=== PATIENT | female | born 1960 | race Caucasian/White ===

== ENCOUNTER 2018-05-04 16:43 | Emergency (ER) | payer MEDICARE, OTHER ==
[~2018-05-04] VITALS: Ht 167.6 cm; Wt 64.4 kg
[~2018-05-04 16:43] MED LIST: AMITRIPTYLINE H10 MG PO; ATIVAN1 MG PO; BACTRIM DS TAB1 EACH PO; CIPRODEX OTIC7.5 ML AD; CYCLOBENZAPRINE10 MG PO; DEPAKOTE ER500 MG PO; HORIZANT600 MG PO; KEFLEX500 MG PO; KETOROLAC TROME10 MG PO; LASIX20 MG PO; LEVAQUIN500 MG PO; LEVOXYL88 MCG PO; MULTIVITAMINS1 EAC7; NEURONTIN800 MG PO; PAMELOR50 MG PO; POTASSIUM 25 M25 MEQ PO; SEROQUEL XR150 MG PO; SUBOXONE 4 MG-1 EACH SL
[2018-05-04] MEDS ORDERED: VENTOLIN HFA18 GM INH (17:07)
[2018-05-04] MEDS ORDERED: METHYLPREDNISOLO4 M1 PO (17:07)
[2018-05-04] MEDS ORDERED: LEVAQUIN500 MG PO (17:07)
== END 2018-05-04 17:10 | disposition home or self-care (01) ==
LOC: ED 16:43
DX: J40 Bronchitis, not specified as acute or chronic (principal); E03.9 Hypothyroidism, unspecified; F31.9 Bipolar disorder, unspecified; Z79.899 Other long term (current) drug therapy
CPT/HCPCS: 99284

== ENCOUNTER 2019-04-24 15:54 | Emergency (ER) | payer MEDICARE, OTHER ==
[~2019-04-24] VITALS: Ht 167.6 cm; Wt 55.8 kg
[~2019-04-24 15:54] MED LIST changes: +METHYLPREDNISOLO4 M1 PO; +VENTOLIN HFA18 GM INH
--- OUTSIDE RECORDS SUMMARY | 2019-04-24 15:56 | XMS ---
PreManage Notification: WALLACE CASIANO Security Cna Pct Events No recent Security Events currently on file CRITERIA MET - [facility] CARE PROVIDERS Richard Manuel Treatment Current PHONE: Unknown Rajiv has no Care Guidelines for this patient. EElle VISIT COUNT (12 MO.) 2 LUIS ARMANDO [facility] TOTAL 2 NOTE: Visits indicate total known visits. 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 - Bipolar disorder, unspecified INPATIENT VISIT TRACKING (12 MO.) 11/11/2018 09:08 Cherie Locke [facility] Medical TYPE: Surgery COMPLAINT: - SPINAL STENOSIS, LUMBAR REGION WITHOUT NEUROGENIC ANTONETTE DIAGNOSES: - Sleep apnea, unspecified - Accidental puncture or laceration of dura during a procedure - longterm (current) use of aspirin - Unspecified asthma, uncomplicated - 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 - Spinal stenosis, lumbar region without neurogenic claudication - Hardware rem\E\T\E\redo p - Other surgical procedures as the cause of abnormal reaction of the patient, or of later complication, without mention of misadventure at the time of the procedure - Disorder of thyroid, unspecified - Pseudarthrosis after fusion or arthrodesis - Personal history of nicotine dependence - Bipolar disorder, unspecified - Spinal stenosis, lumbar region without neurogenic claudication - Hypotension, unspecified - Polyneuropathy, unspecified [email or web address]
== END 2019-04-24 18:42 | disposition home or self-care (01) ==
LOC: ED 15:54
DX: S09.90XA Unspecified injury of head, initial encounter (principal); S91.131A Puncture wound without foreign body of right great toe without damage to nail, initial encounter; S16.1XXA Strain of muscle, fascia and tendon at neck level, initial encounter; W22.8XXA Striking against or struck by other objects, initial encounter; F31.9 Bipolar disorder, unspecified; Z87.891 Personal history of nicotine dependence; Z79.899 Other long term (current) drug therapy
CPT/HCPCS: 70450; 72125; 99283-25

== ENCOUNTER 2020-10-16 13:55 | Emergency (ER) | payer MEDICARE, OTHER ==
[~2020-10-16] VITALS: Ht 167.6 cm; Wt 61.2 kg
--- OUTSIDE RECORDS SUMMARY | 2020-10-16 13:58 | XMS ---
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 Care History Medical/Surgical 04/25/2019 [facility] - Patient is currently established with [facility]. If patient is seen in the ED during business hours. Please contact CHWs at [facility]. Care Recommendation: This patient has had 5 or more Emergency Department visits in the last 12 months.\T\nbsp; Patient requires education on the scope and purpose of the ED as an acute care provider not a Primary Care Provider and should not be utilized for chronic conditions.\T\nbsp; These are guidelines and the provider should exercise clinical judgment when providing care. E.D. VISIT COUNT (12 MO[address] 1 [facility]. 1 [facility] TOTAL 2 NOTE: Visits indicate total known visits. ED/UCC VISIT TRACKING (12 MO.) 10/16/2020 13:56 [facility] ARM[facility] TYPE: Emergency COMPLAINT: - R SIDE JAW/EAR PAIN 08/30/2020 01:28 Robert CARO OR TYPE: Emergency COMPLAINT: - DOG BITE INPATIENT VISIT TRACKING (12 MO.) No inpatient visits to display in this time frame [email or web address]
== END 2020-10-16 14:40 | disposition home or self-care (01) ==
LOC: ED 13:55
DX: H60.91 Unspecified otitis externa, right ear (principal); E03.9 Hypothyroidism, unspecified; Z79.899 Other long term (current) drug therapy
CPT/HCPCS: 99282

== ENCOUNTER 2022-10-29 12:59 | Emergency (ER) | payer MEDICARE, OTHER ==
[~2022-10-29] VITALS: Ht 162.6 cm; Wt 56.7 kg
[~2022-10-29 12:59] MED LIST changes: +DICLOFENAC SODI75 MG PO; +GUANFACINE HCL2 MG PO; +HYDROMORPHONE HC4 MG PO; +IRON 100-VITAM1 EACH PO; +KLOR-CON M2020 MEQ PO; +SENNA LAX8.6 MG PO; +TRAMADOL HCL50 MG PO; +VITAMIN C250 MG; +VITAMIN D31250 MC1; +XARELTO10 MG PO
--- OUTSIDE RECORDS SUMMARY | 2022-10-29 13:03 | XMS ---
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 Care History Medical/Surgical 04/25/2019 [facility] - Patient is currently established with [facility]. If patient is seen in the ED during business hours. Please contact CHWs at [facility]. Care Recommendation: This patient has had [...] care. E.D. VISIT COUNT (12 MO.) 1 [facility] TOTAL 1 NOTE: Visits indicate total known visits. ED/UCC VISIT TRACKING (12 MO.) 10/29/2022 13:00 [facility] TYPE: Emergency COMPLAINT: - L HIP TO FOOT INTERNAL BLEEDING INPATIENT VISIT TRACKING (12 MO.) No inpatient visits to display in this time frame [email or web address]
[2022-10-29] MEDS ORDERED: OXCARBAZEPINE300 MG PO (13:09)
[2022-10-29] MEDS ORDERED: LEVOTHYROXINE88 MCG PO (13:09)
== END 2022-10-29 13:37 | disposition home or self-care (01) ==
LOC: ED 12:59
DX: S33.5XXA Sprain of ligaments of lumbar spine, initial encounter (principal); S80.12XA Contusion of left lower leg, initial encounter; S70.12XA Contusion of left thigh, initial encounter; X58.XXXA Exposure to other specified factors, initial encounter; Z79.899 Other long term (current) drug therapy
CPT/HCPCS: 99283

== ENCOUNTER 2023-04-03 14:17 | Emergency (ER) | payer MEDICARE, OTHER ==
[~2023-04-03] VITALS: Ht 162.6 cm; Wt 58.1 kg
--- OUTSIDE RECORDS SUMMARY | ~2023-04-03 | XMS | Continuity of Care Document ---
Demographics + + + | Address | [address] | | | [place] [address] | + + + | Preferred Language | Unknown | + + + | Marital Status | | + + + | Baptist Affiliation | Unknown | + + + | Race | White | + + + | Ethnic Group | Not or | + + + Author + + + | Author | [facility] | + + + | Organization | [facility] | + + + | Address | [address] | | | [place] [address] | + + + | Phone | | + + + Care Team Providers + + + + | Care Forensic Psychologist Name | Role | Phone | + + + + Unavailable | Unavailable | + + + + Unavailable | Unavailable | + + + + Allergies and Intolerances + + + + + + | date | description | facility | reaction | severity | + + + + + + | (no date) | No Known Drug | [facility] | (no reaction) | (no severity) | | | Allergies | | | | + + + + + + Encounters No information. Functional Status No information. Immunizations No information. Medications + + + + | date | description | facility | + + + + | 2022-10-29 00:00 | LORAZEPAM | [facility] | + + + + | 2022-10-29 00:00 | GABAPENTIN ENACARBIL | [facility] | + + + + | 2012-12-29 00:00 | POTASSIUM BICARBONATE/CIT | [facility] | | | AC | | + + + + | 2022-10-29 00:00 | BUPRENORPHINE HCL/NALOXONE | [facility] | | | HCL | | + + + + | 2022-10-29 00:00 | POTASSIUM CHLORIDE | [facility] | + + + + | 2022-10-29 00:00 | ASCORBIC ACID | [facility] | + + + + | 2012-12-29 00:00 | FUROSEMIDE | [facility] | + + + + | 2022-10-29 00:00 | NORTRIPTYLINE HCL | [facility] | + + + + | 2016-05-19 00:00 | LEVOFLOXACIN | [facility] | + + + + | 2014-12-21 00:00 | CEPHALEXIN | [facility] | + + + + | 2022-10-29 00:00 | IRON,CARBONYL/ASCORBIC | [facility] | | | ACID | | + + + + | 2022-10-29 00:00 | GABAPENTIN | [facility] | + + + + | 2022-10-29 00:00 | OXCARBAZEPINE | [facility] | + + + + | 2016-08-07 00:00 | CIPROFLOXACIN HCL/DEXAMETH | [facility] | | | | | + + + + | 2022-10-29 00:00 | Cholecalciferol (Vitamin | [facility] | | | D3) | | + + + + | 2018-05-04 00:00 | METHYLPREDNISOLONE | [facility] | + + + + | 2022-10-29 00:00 | CYCLOBENZAPRINE HCL | [facility] | + + + + | 2018-03-04 00:00 | KETOROLAC TROMETHAMINE | [facility] | + + + + | 2016-08-07 00:00 | | [facility] | | | SULFAMETHOXAZOLE/TRIMETHOPR | | | | IM DS | | + + + + | 2018-05-04 00:00 | ALBUTEROL SULFATE | [facility] | + + + + | 2022-10-29 00:00 | QUETIAPINE FUMARATE | [facility] | + + + + | 2022-10-29 00:00 | LEVOTHYROXINE SODIUM | [facility] | + + + + | 2022-10-29 00:00 | LEVOTHYROXINE SODIUM | [facility] | + + + + Problems + + + + | date | description | facility | + + + + | 2014-12-21 00:00 | Acute cystitis | [facility] | + + + + | 2016-08-07 00:00 | Otitis externa of right | [facility] | | | ear | | + + + + | 2016-08-07 00:00 | Abscess of right axilla | [facility] | + + + + | 2018-03-04 00:00 | Contusion of left foot | [facility] | + + + + | 2018-05-04 00:00 | Bronchitis | [facility] | + + + + | 2019-04-24 00:00 | Minor head injury | [facility] | + + + + | 2019-04-24 00:00 | Strain of neck muscle | [facility] | + + + + | 2022-08-29 15:01 | OTHER SPECIFIED DISEASES | [facility] | | | OF BLOOD AND BLOOD-FORMIN | | + + + + | 2022-08-29 15:01 | PRIMARY OSTEOARTHRITIS, | [facility] | | | LEFT SHOULDER | | + + + + | 2022-10-29 00:00 | Complete tear of | [facility] | | | iliolumbar ligament | | + + + + | 2022-10-29 13:00 | SPRAIN OF LIGAMENTS OF | [facility] | | | LUMBAR SPINE, INITIAL | | | | ENCOUNTER | | + + + + | 2022-10-29 13:00 | CONTUSION OF LEFT THIGH, | [facility] | | | INITIAL ENCOUNTER | | + + + + | 2022-10-29 13:00 | CONTUSION OF LEFT LOWER | [facility] | | | LEG, INITIAL ENCOUNTER | | + + + + | 2022-10-29 13:00 | EXPOSURE TO OTHER | [facility] | | | SPECIFIED FACTORS, INITIAL | | | | ENCOU | | + + + + | 2022-10-29 13:00 | OTHER FPC (CURRENT) | [facility] | | | DRUG THERAPY | | + + + + | 2023-02-11 00:01 | AFTERCARE FOLLOWING JOINT | [facility] | | | REPLACEMENT SURGERY | | + + + + | 2023-02-11 00:01 | PRESENCE OF LEFT | [facility] | | | ARTIFICIAL SHOULDER JOINT | | + + + + Procedures No information. Results/Labs No information. Social History No information. Vital Signs + + + +---------+ | date | measurement | value | units | + + + +---------+ | 2022-10-29 00:00 | BMI | 21.5 | kg/m2 | + + + +---------+ | 2022-10-29 00:00 | BP_diastolic | 97 | mmHg | + + + +---------+ | 2022-10-29 00:00 | BP_systolic | 144 | mmHg | + + + +---------+ | 2022-10-29 00:00 | heart_rate | 103 | /min | + + + +---------+ | 2022-10-29 00:00 | height_metric | 162.56 | cm | + + + +---------+ | 2022-10-29 00:00 | height_standard | 64 | in | + + + +---------+ | 2022-10-29 00:00 | o2_saturation | 99 | % | + + + +---------+ | 2022-10-29 00:00 | respiration_rate | 17 | /min | + + + +---------+ | 2022-10-29 00:00 | temperature_metric | 36.94 | C | | | | | | + + + +---------+ | 2022-10-29 00:00 | | 98.5 | F | | | temperature_standar | | | | | d | | | + + + +---------+ | 2022-10-29 00:00 | weight_metric | 56.7 | kg | + + + +---------+ | 2022-10-29 00:00 | weight_standard | 125 | lb | + + + +---------+"
--- OUTSIDE RECORDS SUMMARY | ~2023-04-03 | XMS | Continuity of Care Document ---
Demographics + + + | Address | [address] | | | [place] [address] | + + + | Preferred Language | Unknown | + + + | Marital Status | | + + + | Yazidi Affiliation | Unknown | + + + | Race | White | + + + | Ethnic Group | Not or | + + + Author + + + | Author | [facility] | + + + | Organization | [facility] | + + + | Address | [address] | | | [place] [address] | + + + | Phone | | + + + Care Team Providers + + + + | Care Coppersmith Helper Name | Role | Phone | + [...] 2022-10-29 00:00 | LORAZEPAM | [facility] | + + + + | 2022-10-29 00:00 | GABAPENTIN ENACARBIL | [facility] | + + + + | 2012-12-29 00:00 | POTASSIUM BICARBONATE/CIT | [facility] | | | AC | | + + + + | 2022-10-29 00:00 | BUPRENORPHINE HCL/NALOXONE | [facility] | | | HCL | | + + + + | 2022-10-29 00:00 | POTASSIUM CHLORIDE | [facility] | + + + + | 2022-10-29 00:00 | ASCORBIC ACID | [facility] | + + + + | 2012-12-29 00:00 | FUROSEMIDE | [facility] | + + + + | 2022-10-29 00:00 | NORTRIPTYLINE HCL | [facility] | + + + + | 2016-05-19 00:00 | LEVOFLOXACIN | [facility] | + + + + | 2014-12-21 00:00 | CEPHALEXIN | [facility] | + + + + | 2022-10-29 00:00 | IRON,CARBONYL/ASCORBIC | [facility] | | | ACID | | + + + + | 2022-10-29 00:00 | GABAPENTIN | [facility] | + + + + | 2022-10-29 00:00 | OXCARBAZEPINE | [facility] | + + + + | 2016-08-07 00:00 | CIPROFLOXACIN HCL/DEXAMETH | [facility] | | | | | + + + + | 2022-10-29 00:00 | Cholecalciferol (Vitamin | [facility] | | | D3) | | + + + + | 2018-05-04 00:00 | METHYLPREDNISOLONE | [facility] | + + + + | 2022-10-29 00:00 | CYCLOBENZAPRINE HCL | [facility] | + + + + | 2018-03-04 00:00 | KETOROLAC TROMETHAMINE | [facility] | + + + + | 2016-08-07 00:00 | | [facility] | | | SULFAMETHOXAZOLE/TRIMETHOPR | | | | IM DS | | + + + + | 2018-05-04 00:00 | ALBUTEROL SULFATE | [facility] | + + + + | 2022-10-29 00:00 | QUETIAPINE FUMARATE | [facility] | + + + + | 2022-10-29 00:00 | LEVOTHYROXINE SODIUM | [facility] | + + + + | 2022-10-29 00:00 | LEVOTHYROXINE SODIUM | [facility] | + + + + Problems + + + + | date | description | facility | + + + + | 2014-12-21 00:00 | Acute cystitis | [facility] | + + + + | 2016-08-07 00:00 | Otitis externa of right | [facility] | | | ear | | + + + + | 2016-08-07 00:00 | Abscess of right axilla | [facility] | + + + + | 2018-03-04 00:00 | Contusion of left foot | [facility] | + + + + | 2018-05-04 00:00 | Bronchitis | [facility] | + + + + | 2019-04-24 00:00 | Minor head injury | [facility] | + + + + | 2019-04-24 00:00 | Strain of neck muscle | [facility] | + + + + | 2022-08-29 15:01 | OTHER SPECIFIED DISEASES | [facility] | | | OF BLOOD AND BLOOD-FORMIN | | + + + + | 2022-08-29 15:01 | PRIMARY OSTEOARTHRITIS, | [facility] | | | LEFT SHOULDER | | + + + + | 2022-10-29 00:00 | Complete tear of | [facility] | | | iliolumbar ligament | | [...] + + | 2022-10-29 13:00 | OTHER SENIOR CARE (CURRENT) | [facility] | | | DRUG [...]
[~2023-04-03 14:17] MED LIST changes: +LEVOTHYROXINE88 MCG PO; +OXCARBAZEPINE300 MG PO
--- OUTSIDE RECORDS SUMMARY | 2023-04-03 14:20 | XMS ---
PreManage Notification: WALLACE CASIANO Security Bracelet Former Events No recent Security Events currently on file CRITERIA MET - [facility] CARE PROVIDERS AJ NARANJO Internal Medicine: Pulmonary Disease 04/25/2019-Current PHONE: Unknown Rajiv has no Care Guidelines for this patient. Care History Medical/Surgical 04/25/2019 [facility] - Patient is currently established with [facility]. If patient is seen in the ED during business hours. Please contact CHWs at [facility]. Care Recommendation: This patient has had 5 [...] providing care. E.D. VISIT COUNT (12 MO.) 2 [facility] TOTAL 2 NOTE: Visits indicate total known visits. 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
[2023-04-03 17:41] VITALS: BP 143/84
== END 2023-04-03 17:40 | disposition home or self-care (01) ==
LOC: ED 14:17
DX: S06.0X9A Concussion with loss of consciousness of unspecified duration, initial encounter (principal); S01.01XA Laceration without foreign body of scalp, initial encounter; M54.2 Cervicalgia; M25.511 Pain in right shoulder; W10.9XXA Fall (on) (from) unspecified stairs and steps, initial encounter; F31.9 Bipolar disorder, unspecified; Z79.899 Other long term (current) drug therapy
CPT/HCPCS: 70450; 72125; 73030; 99284-25

== ENCOUNTER 2024-10-18 20:47 | Emergency (ER) | payer MEDICARE, OTHER ==
[~2024-10-18] VITALS: Ht 162.6 cm; Wt 56.4 kg
[2024-10-18] MEDS ORDERED: DIPHTH,PERTUSS(ACELL),TET VAC 0.5 ML SYRINGE IM ONE (21:00)
[2024-10-18] MEDS ORDERED: FAMOTIDINE 20 MG/ 2 ML VIAL IV ONE (21:00)
[2024-10-18] MEDS ORDERED: fentaNYL citrate 100 MCG/2 ML VIAL IV ONE (21:00)
[2024-10-18] MEDS ORDERED: MULTIVITAMINS 10 ML,FOLIC ACID 1 MG,THIAMINE HCL 100 MG in SODIUM CHLORIDE 0.9% 1,000 ML IV ONE (21:00)
[2024-10-18] MEDS ORDERED: ondansetron HCL 4 MG/2 ML VIAL IV ONE (21:00)
[2024-10-18] MEDS ORDERED: FOLIC ACID 1 MG/0.2 ML ML ONE (21:01)
[2024-10-18 21:16] LABS: BASOPHILS 0.4 % (0-2); EOSINOPHILS 0.6 % (0-6); HEMATOCRIT 38.4 % (35.0-50.0); HEMOGLOBIN 13.2 g/dL (12.0-18.0); LYMPHOCYTES 21.6 % (24-44); MCH 38.6 (27-36); MCHC 34.4 g/dl (30-36); MCV 112.2 fl (81-99); MONOCYTES 10.7 % (0-12); NEUTROPHILS 66.7 % (39-80); PLATELET COUNT 196 K/uL (140-440); RBC 3.42 M/ul (4.3-5.7); RDW 15.3 (10.5-15.0)
[2024-10-18 21:39] LABS: ALBUMIN 3.8 g/dL (3.4-5.0); ALBUMIN/GLOBULIN RATIO 1.12 (1.1-2.4); ANION GAP 14.4 (7-21); BILIRUBIN, TOTAL 0.9 mg/dL (0.2-1.0); BUN/CREATININE RATIO 14.49 (6.0-28.6); CALCIUM 8.7 mg/dL (8.5-10.1); CREATININE, SERUM 0.69 mg/dL (0.55-1.02); POTASSIUM 3.4 mmol/L (3.5-5.1); PROTEIN, TOTAL 7.2 g/dL (6.4-8.2)
[2024-10-18 21:42] LABS: MAGNESIUM 1.8 mg/dL (1.8-2.4)
[2024-10-18 21:55] LABS: ABO A; RH POSITIVE
[2024-10-18 21:56] LABS: ANTIBODY SCREEN NEGATIVE
[2024-10-18] MEDS ORDERED: HYDROmorphone HCL 1 MG/ML SYR IV PRN (22:00)
[2024-10-18] MEDS ORDERED: LACTATED RINGER'S 1,000 ML IV ONE (22:15)
[2024-10-18] MEDS ORDERED: MORPHINE SULFATE 4 MG/ML VIAL IV ONE (22:15)
[2024-10-18] MEDS ORDERED: PIPERACILLIN/TAZOBACTAM 3.375 GM VIAL ONE (22:27)
[2024-10-18] MEDS ORDERED: PIPERACILLIN/TAZOBACTAM 3.375 GM in SODIUM CHLORIDE 0.9% 100 ML IV ONE (22:30)
[2024-10-18] MEDS ORDERED: KETOROLAC TROMETHAMINE 30 MG/ML VIAL IV ONE (22:30)
[2024-10-18] MEDS ORDERED: PANTOPRAZOLE SODIUM 40 MG/10 ML VIAL IV ONE (22:45)
[2024-10-18] MEDS ORDERED: KETAMINE in NS 50 MG/5 ML SYR IV PRN (22:45)
[2024-10-18] MEDS ORDERED: LORazepam 2 MG/ML VIAL ONE (22:56)
[2024-10-18] MEDS ORDERED: LORazepam 2 MG/ML VIAL IV ONE (23:15)
[2024-10-18 23:34] VITALS: BP 172/116
--- NOTE | 2024-10-20 17:11 | EKG ---
[facility] [address] [place], [place] [address] Signed Normal sinus rhythm ST \T\ T wave abnormality, consider anterolateral ischemia Abnormal ECG No previous ECGs available Confirmed by Lilo Sahni MD ([id number]) on 10/20/2024 5:11:44 PM Electronically Signed By: LILO SAHNI MD 10/20/241710 PATIENT NAME: WALLACE CASIANO Electrocardiogram DATE OF : 62 PHYSICIAN: LLIO SAHNI MD REPORT #: [id number] REPORT IS CONFIDENTIAL AND NOT TO BE RELEASED WITHOUT AUTHORIZATION
== END 2024-10-18 23:34 | disposition short-term general hospital (02) ==
LOC: ED 20:47
PROVIDERS: Internal Medicine
DX: S22.41XA Multiple fractures of ribs, right side, initial encounter for closed fracture (principal); S27.0XXA Traumatic pneumothorax, initial encounter; W19.XXXA Unspecified fall, initial encounter; F10.229 Alcohol dependence with intoxication, unspecified; J98.2 Interstitial emphysema; Z79.890 Hormone replacement therapy; Z79.899 Other long term (current) drug therapy
CPT/HCPCS: 36415; 70450; 70486; 71260; 72125; 74177; 80053; 80307; 82550; 83605; 83690; 83735; 84484; 85025; 85060; 86850; 86900; 86901; 90471; 90715; 93005; 93010; 99291; 99292; G0390; G0480; J1171; J1885; J2060; J2270; J2405; J2470; J2543; J3010; J3411; J3490; J7030; J7121; Q9967